=== PATIENT | female | born 1955 | race African-American/Black ===

== ENCOUNTER 2016-12-11 12:16 | Emergency (ER) | payer OTHER ==
[~2016-12-11] VITALS: Wt 56.2 kg
[~2016-12-11 12:16] MED LIST: ALLERGY RELIEF10 M2 PO; ANTIVERT/2525 M1 PO; ASPIR LOW81 MG PO; CORICIDIN COUGH1 TAB PO; K-TAB20 MEQ PO; LEVAQUIN750 M1 PO; LIPITOR40 MG PO; LISINOPRIL5 MG PO; MACROBID100 M1 PO; MECLIZINE HCL25 M2 PO; MIRAPEX PO; MIRAPEX0.125 M1 PO; Motrin,Rufen800 MG PO; NEURONTIN300 MG PO; NEURONTIN600 MG PO; NORCO 5-325 TA1 EACH PO; PREDNISONE50 MG PO; PRILOSEC40 M1 PO; PRINIVIL10 MG PO; TECFIDERA PO; TECFIDERA240 M2 PO; TRAZODONE50 MG PO; TYLENOL325 M2 PO; XALATAN 0.005%2.5 ML INTRAOC; ZANTAC 150150 MG PO; ZOFRAN ODT4 MG SL
[2016-12-11] MEDS ORDERED: PREVACID15 M1 PO (12:40)
[2016-12-11] MEDS ORDERED: ROBAXIN500 M1 PO (12:41)
[2016-12-11] MEDS ORDERED: ALBUTEROL2.5 MG/0.5 INH (12:41)
[2016-12-11] MEDS ORDERED: ASMANEX HF100 MCG/Ac INH (12:41)
== END 2016-12-11 15:07 | disposition home or self-care (01) ==
LOC: ED 12:16
DX: R13.10 Dysphagia, unspecified (principal); F17.200 Nicotine dependence, unspecified, uncomplicated; Z90.710 Acquired absence of both cervix and uterus; Z90.49 Acquired absence of other specified parts of digestive tract; Z79.899 Other long term (current) drug therapy; Z88.5 Allergy status to narcotic agent

== ENCOUNTER 2016-12-19 16:45 | Inpatient (IN) | payer OTHER ==
[~2016-12-19] VITALS: Ht 160 cm; Wt 57.2 kg
[2016-12-19 16:45] VITALS: BP 122/103
[~2016-12-19 16:45] MED LIST changes: +ALBUTEROL2.5 MG/0.5 INH; +ASMANEX HF100 MCG/Ac INH; +PREVACID15 M1 PO; +ROBAXIN500 M1 PO
[2016-12-19 17:00] VITALS: BP 128/88
[2016-12-19 17:24] LABS: BASO % 0.8 % (0.0-1.0); EOS # 0.1 10*3/uL (0.0-0.4); EOS % 1.4 % (1.0-4.0); HEMATOCRIT 33.9 % (37.0-47.0); HEMOGLOBIN 11.3 g/dl (12.0-16.0); LYMPH # 1.5 10*3/uL (1.3-4.4); LYMPH % 42.9 % (27.0-41.0); MEAN CELL VOLUME 88.1 fl (81.0-99.0); MEAN CORPUSCULAR HGB 29.4 pg (27.0-31.0); MEAN CORPUSCULAR HGB CONC 33.3 g/dl (33.0-37.0); MEAN PLATELET VOLUME 10.3 fl (9.6-12.3); MONO # 0.4 10*3/uL (0.1-1.0); MONO % 10.6 % (3.0-9.0); NEUT # 1.6 10*3/uL (2.3-7.9); NEUT % 44.3 % (47.0-73.0); PLATELET COUNT AUTOMATED 202 10*3/uL (130-400); RED BLOOD COUNT 3.85 10*6/uL (4.10-5.10); RED CELL DISTRI WIDTH 13.6 % (0-14.5); WHITE BLOOD COUNT 3.6 10*3/uL (4.8-10.8)
[2016-12-19 17:37] LABS: INTERNATIONAL NORM RATIO 0.9 (2.0-3.5)
[2016-12-19 17:40] LABS: ALBUMIN 3.8 gm/dl (3.1-4.5); ALKALINE PHOSPHATASE 70 U/L (45-117); BILIRUBIN, TOTAL 0.3 mg/dl (0.2-1.0); BUN 18 mg/dl (7-24); CARBON DIOXIDE 25 mmol/L (21-32); CHLORIDE 105 mmol/L (98-107); CPK 87 U/L (26-192); EST GLOM FILT AFRICAN AMERICAN > 60 ml/min; GLUCOSE 124 mg/dL (65-99); MAGNESIUM 2.2 mg/dL (1.5-2.1); POTASSIUM 3.5 mmol/L (3.5-5.1); SGOT/AST 17 IU/L (3-35); SGPT/ALT 21 U/L (12-78); SODIUM 142 mmol/L (136-145)
[2016-12-19 17:43] LABS: TROPONIN I < 0.015 ng/ml (<0.045)
[2016-12-19] MEDS ORDERED: LISINOPRIL/HCTZ1 TA4 PO (18:34)
[2016-12-19 18:56] VITALS: BP 108/68
[2016-12-19 19:14] VITALS: BP 109/58
[2016-12-19 20:00] VITALS: BP 110/68
[2016-12-19] MEDS ORDERED: BENADRYL ALLERG25 M5 PO (20:09)
[2016-12-19] MEDS ORDERED: PROAIR HFA8.5 GM INH (20:14)
[2016-12-19] MEDS ORDERED: ZANTAC 150150 MG PO (20:15)
[2016-12-19] MEDS ORDERED: NEURONTIN300 MG PO ×2 (20:18)
[2016-12-19] MEDS ORDERED: BOOST PO (20:19)
[2016-12-19 20:24] VITALS: BP 110/68
[2016-12-20] VITALS: BP 120/51
[2016-12-20 00:47] LABS: CKMB < 0.5 ng/ml (0.5-3.6); CPK 90 U/L (26-192); TROPONIN I < 0.015 ng/ml (<0.045)
[2016-12-20 06:36] LABS: HEMATOCRIT 34.4 % (37.0-47.0); HEMOGLOBIN 11.3 g/dl (12.0-16.0); MEAN CELL VOLUME 88.7 fl (81.0-99.0); MEAN CORPUSCULAR HGB 29.1 pg (27.0-31.0); MEAN CORPUSCULAR HGB CONC 32.8 g/dl (33.0-37.0); PLATELET COUNT AUTOMATED 209 10*3/uL (130-400); RED BLOOD COUNT 3.88 10*6/uL (4.10-5.10); RED CELL DISTRI WIDTH 13.9 % (0-14.5); WHITE BLOOD COUNT 3.5 10*3/uL (4.8-10.8)
[2016-12-20 06:40] LABS: CPK 75 U/L (26-192)
[2016-12-20 06:41] LABS: CKMB < 0.5 ng/ml (0.5-3.6); TROPONIN I < 0.015 ng/ml (<0.045)
[2016-12-20 06:44] LABS: HEMOGLOBIN A1c 5.7 % (4.8-5.6)
[2016-12-20 06:59] LABS: BUN 15 mg/dl (7-24); CARBON DIOXIDE 30 mmol/L (21-32); CHLORIDE 106 mmol/L (98-107); CHOLESTEROL 140 mg/dL (<200); EST GLOM FILT AFRICAN AMERICAN > 60 ml/min; FREE T4 1.19 ng/dl (0.76-1.46); GLUCOSE 87 mg/dL (65-99); HDL CHOLESTEROL 88 mg/dl (40-60); LDL CHOLESTEROL 44 mg/dL (9-159); PHOSPHOROUS 3.8 mg/dL (2.5-4.9); POTASSIUM 4.1 mmol/L (3.5-5.1); SODIUM 144 mmol/L (136-145); TRIGLYCERIDES 39 mg/dl (<150); VLDL CHOLESTEROL 8 mg/dL (6-40)
[2016-12-20 07:04] LABS: LYMPHOCYTE # 2.1 10*3/uL (1.3-4.4); MONOCYTE # 0.4 10*3/uL (0.1-1.0); NEUTROPHILS 29 % (47-73); TOTAL CELLS COUNTED 100 #CELLS
[2016-12-20 07:05] LABS: PLATELET SUFFICIENCY NORMAL (NORMAL)
[2016-12-20 07:46] LABS: VITAMIN D, 25-HYDROXY 17.2 ng/mL (30-100)
[2016-12-20 07:47] LABS: FOLIC ACID 9.32 ng/mL (>5.38)
[2016-12-20 08:00] VITALS: BP 104/58
[2016-12-20 12:00] VITALS: BP 119/62
[2016-12-20 12:13] LABS: CKMB 0.5 ng/ml (0.5-3.6); CPK 69 U/L (26-192)
[2016-12-20 12:15] LABS: TROPONIN I < 0.015 ng/ml (<0.045)
== END 2016-12-20 13:55 | disposition home or self-care (01) | DRG 313 ==
LOC: ED 16:45 → 4E 18:04 → EDHOLD 18:04 → 4E 18:56
PROVIDERS: Student in an Organized Health Care Education/Training Program
DX: R07.89 Other chest pain (principal); E83.41 Hypermagnesemia; I10 Essential (primary) hypertension; D72.819 Decreased white blood cell count, unspecified; D64.9 Anemia, unspecified; G35 Multiple sclerosis; E78.5 Hyperlipidemia, unspecified; K21.9 Gastro-esophageal reflux disease without esophagitis; R00.1 Bradycardia, unspecified; F17.210 Nicotine dependence, cigarettes, uncomplicated; R13.10 Dysphagia, unspecified; E55.9 Vitamin D deficiency, unspecified; J44.9 Chronic obstructive pulmonary disease, unspecified; Z86.73 Personal history of transient ischemic attack (TIA), and cerebral infarction without residual deficits; Z82.49 Family history of ischemic heart disease and other diseases of the circulatory system; Z90.49 Acquired absence of other specified parts of digestive tract; Z90.710 Acquired absence of both cervix and uterus; Z82.3 Family history of stroke; Z88.5 Allergy status to narcotic agent; Z79.82 Long term (current) use of aspirin; Z79.899 Other long term (current) drug therapy

== ENCOUNTER 2017-05-14 11:32 | Emergency (ER) | payer OTHER ==
[~2017-05-14] VITALS: Ht 160 cm; Wt 54.4 kg
[~2017-05-14 11:32] MED LIST changes: +BENADRYL ALLERG25 M5 PO; +BOOST PO; +LISINOPRIL/HCTZ1 TA4 PO; +PROAIR HFA8.5 GM INH
[2017-05-14 12:00] LABS: BILIRUBIN NEGATIVE (NEGATIVE); BLOOD NEGATIVE (NEGATIVE); CLARITY CLEAR (CLEAR); COLOR YELLOW (YELLOW); GLUCOSE NEGATIVE (NEGATIVE); KETONE 1+ (NEGATIVE); LEUKO ESTERASE NEGATIVE (NEGATIVE); NITRITE NEGATIVE (NEGATIVE); PH 5.5 (5.0-9.0); UROBILINOGEN 0.2 E.U./dl (0.2-1.0)
[2017-05-14] MEDS ORDERED: CYCLOBENZAPRINE5 M3 PO (12:53)
[2017-05-14] MEDS ORDERED: LIDEX 0.05% CRE15 GM T (12:53)
== END 2017-05-14 13:01 | disposition home or self-care (01) ==
LOC: ED 11:32
PROVIDERS: Physician Assistant
DX: L50.9 Urticaria, unspecified (principal); M54.5 Low back pain; R10.30 Lower abdominal pain, unspecified; F17.200 Nicotine dependence, unspecified, uncomplicated; Z88.6 Allergy status to analgesic agent; Z79.899 Other long term (current) drug therapy

== ENCOUNTER 2017-06-20 14:23 | Inpatient (IN) | payer OTHER ==
[~2017-06-20] VITALS: Ht 160 cm; Wt 51.9 kg
[~2017-06-20 14:23] MED LIST changes: +CYCLOBENZAPRINE5 M3 PO; +LIDEX 0.05% CRE15 GM T
[2017-06-20 14:31] VITALS: BP 135/71
[2017-06-20 14:47] LABS: BASO % 0.5 % (0.0-1.0); EOS # 0.1 10*3/uL (0.0-0.4); HEMATOCRIT 33.2 % (37.0-47.0); HEMOGLOBIN 11.1 g/dl (12.0-16.0); LYMPH # 2.7 10*3/uL (1.3-4.4); MEAN CELL VOLUME 90.2 fl (81.0-99.0); MEAN CORPUSCULAR HGB 30.2 pg (27.0-31.0); MEAN CORPUSCULAR HGB CONC 33.4 g/dl (33.0-37.0); MEAN PLATELET VOLUME 10.3 fl (9.6-12.3); MONO # 0.4 10*3/uL (0.1-1.0); MONO % 6.9 % (3.0-9.0); NEUT # 2.4 10*3/uL (2.3-7.9); NEUT % 43.2 % (47.0-73.0); PLATELET COUNT AUTOMATED 237 10*3/uL (130-400); RED BLOOD COUNT 3.68 10*6/uL (4.10-5.10); RED CELL DISTRI WIDTH 13.3 % (0-14.5); WHITE BLOOD COUNT 5.6 10*3/uL (4.8-10.8)
[2017-06-20 14:56] LABS: ACT PARTIAL THROMBO TIME 21.2 SECONDS (20.8-31.5); INTERNATIONAL NORM RATIO 0.9 (2.0-3.5)
[2017-06-20 15:02] LABS: LIPASE 183 U/L (73-393)
[2017-06-20 15:03] LABS: ALBUMIN 3.8 gm/dl (3.1-4.5); ALKALINE PHOSPHATASE 74 U/L (45-117); BUN 20 mg/dl (7-24); CHLORIDE 106 mmol/L (98-107); CREATININE 0.97 mg/dL (0.55-1.02); MAGNESIUM 1.9 mg/dL (1.5-2.1); POTASSIUM 3.9 mmol/L (3.5-5.1); SGOT/AST 22 IU/L (3-35); SGPT/ALT 25 U/L (12-78); SODIUM 139 mmol/L (136-145)
[2017-06-20 15:04] LABS: TROPONIN I < 0.015 ng/ml (<0.045)
[2017-06-20 15:09] VITALS: BP 121/70
[2017-06-20 15:35] VITALS: BP 144/69
--- NOTE | 2017-06-20 16:12 | NUR ---
BACK FROM US. PT STATES PAIN IS "ALOT LESS. DOESN'T REALLY HURT RIGHT NOW".
[2017-06-20 16:13] VITALS: BP 127/60
--- NOTE | 2017-06-20 16:20 | NUR ---
A 61, admitted to 5E, under the services of EWA Hernandez DO with a diagnosis of CHEST PAIN R/O PA, ABD PAIN. Chief complaint is CHEST PAIN. Patient arrived via ambulatory from ER. Monitor applied. Initial assessment completed. Vital signs taken and recorded. EWA HERNANDEZ DO notified of admission to the unit. Orders received. See assessment for past medical history, medications and allergies. Patient and/or family oriented to unit. [facility] visitation policy reviewed. Clothing/patient valuable form completed. DARLENE ARNOLD
[2017-06-20 16:48] VITALS: BP 136/62
--- NOTE | 2017-06-20 16:57 | NUR ---
CT PREP STARTED AT THIS TIME.
[2017-06-20] MEDS ORDERED: PROTONIX40 MG PO (17:29)
--- NOTE | 2017-06-20 17:39 | NUR ---
PT MED REC UP TO DATE PER LIST PROVIDED BY PT.
--- NOTE | 2017-06-20 17:39 | NUR ---
CT PREP COMPLETED AT THIS TIME.
--- NOTE | 2017-06-20 18:20 | NUR ---
PT TO CT AT THIS TIME.
--- NOTE | 2017-06-20 18:40 | NUR ---
PT BACK FROM CT AT THIS TIME.
--- NOTE | 2017-06-20 18:45 | NUR ---
PT RESTING UP IN BED EATING DINNER, NO COMPLAINTS AT THIS TIME. CALL LIGHT WITHIN REACH.
[2017-06-20 20:00] VITALS: BP 96/51
[2017-06-21] VITALS: BP 104/53
--- NOTE | 2017-06-21 01:16 | NUR ---
PATIENT MEDICATED WITH NORCO PER PRN ORDER FOR C/O LEG PAIN. RATED PAIN A 7-8/10 WITH 10 BEING THE WORST. SEE EMAR. REINFORCED USE OF CALL LIGHT.
[2017-06-21 06:03] LABS: BASO # 0.1 10*3/uL (0.0-0.1); EOS # 0.2 10*3/uL (0.0-0.4); HEMATOCRIT 31.4 % (37.0-47.0); HEMOGLOBIN 10.5 g/dl (12.0-16.0); LYMPH # 2.4 10*3/uL (1.3-4.4); MEAN CORPUSCULAR HGB 29.7 pg (27.0-31.0); MEAN CORPUSCULAR HGB CONC 33.4 g/dl (33.0-37.0); MEAN PLATELET VOLUME 10.4 fl (9.6-12.3); MONO # 0.4 10*3/uL (0.1-1.0); MONO % 8.1 % (3.0-9.0); NEUT % 38.7 % (47.0-73.0); PLATELET COUNT AUTOMATED 217 10*3/uL (130-400); RED BLOOD COUNT 3.53 10*6/uL (4.10-5.10); RED CELL DISTRI WIDTH 13.3 % (0-14.5)
[2017-06-21 06:47] LABS: ALBUMIN 3.6 gm/dl (3.1-4.5); ALKALINE PHOSPHATASE 66 U/L (45-117); BUN 17 mg/dl (7-24); CHLORIDE 104 mmol/L (98-107); CREATININE 0.66 mg/dL (0.55-1.02); MAGNESIUM 1.8 mg/dL (1.5-2.1); PHOSPHOROUS 3.6 mg/dL (2.5-4.9); POTASSIUM 3.6 mmol/L (3.5-5.1); SGOT/AST 18 IU/L (3-35); SGPT/ALT 27 U/L (12-78); SODIUM 139 mmol/L (136-145); TOTAL PROTEIN 6.6 gm/dL (6.4-8.2)
[2017-06-21 06:54] LABS: FREE T4 1.16 ng/dl (0.76-1.46)
[2017-06-21 08:00] VITALS: BP 116/62
[2017-06-21 08:35] LABS: VITAMIN D, 25-HYDROXY 77.7 ng/mL (30-100)
--- NOTE | 2017-06-21 09:47 | NUR ---
MEDICATED WITH ROBAXIN PER PRN ORDER FOR LEG ACHES AND RESTLESS LEGS. WILL MONITOR FOR EFFECTIVENESS.
--- NOTE | 2017-06-21 11:36 | NUR ---
PT RESTING COMOFRTABLY, ROBAXIN EFFECTIVE.
[2017-06-21 12:00] VITALS: BP 129/78
--- NOTE | 2017-06-21 13:28 | NUR ---
Discharge instructions reviewed with patient/family. Patient receptive and verbalizes understanding. Follow-up care arranged. Written instructions given to patient/family. IV site and upper shaper removed. Ptr transported to [facility] via wheelchair. DARLENE ARNOLD
== END 2017-06-21 13:28 | disposition home or self-care (01) | DRG 391 ==
LOC: ED 14:23 → EDHOLD 15:18 → 5E 15:37
PROVIDERS: Emergency Medicine; Internal Medicine; ADMIT Internal Medicine
DX: K21.9 Gastro-esophageal reflux disease without esophagitis (principal); J18.9 Pneumonia, unspecified organism; K76.0 Fatty (change of) liver, not elsewhere classified; G35 Multiple sclerosis; I10 Essential (primary) hypertension; D64.9 Anemia, unspecified; E78.5 Hyperlipidemia, unspecified; J44.9 Chronic obstructive pulmonary disease, unspecified; F17.210 Nicotine dependence, cigarettes, uncomplicated; K59.00 Constipation, unspecified; Z88.6 Allergy status to analgesic agent; Z79.899 Other long term (current) drug therapy; Z79.82 Long term (current) use of aspirin; Z86.73 Personal history of transient ischemic attack (TIA), and cerebral infarction without residual deficits; Z90.710 Acquired absence of both cervix and uterus; Z90.49 Acquired absence of other specified parts of digestive tract; Z82.3 Family history of stroke; Z82.49 Family history of ischemic heart disease and other diseases of the circulatory system; Z83.6 Family history of other diseases of the respiratory system

== ENCOUNTER → 2017-06-27 | Outpatient (CLI) | payer OTHER ==
[~2017-06-27] MED LIST changes: +PROTONIX40 MG PO
== END | disposition home or self-care (01) ==
LOC: NM 08:40
DX: R10.11 Right upper quadrant pain (principal); R10.9 Unspecified abdominal pain; I10 Essential (primary) hypertension; K21.9 Gastro-esophageal reflux disease without esophagitis

== ENCOUNTER 2017-09-30 20:08 | Emergency (ER) | payer OTHER ==
[~2017-09-30] VITALS: Ht 160 cm; Wt 52.6 kg
[2017-09-30] MEDS ORDERED: VITAMIN D50000 UNIT PO (20:23)
[2017-09-30] MEDS ORDERED: ATORVASTATIN CA80 M1 PO (20:23)
[2017-09-30] MEDS ORDERED: NYST SUSP PO (20:26)
[2017-09-30 21:03] LABS: BASO % 0.7 % (0.0-1.0); EOS # 0.1 10*3/uL (0.0-0.4); EOS % 1.2 % (1.0-4.0); HEMATOCRIT 34.3 % (37.0-47.0); HEMOGLOBIN 11.3 g/dl (12.0-16.0); LYMPH # 2.6 10*3/uL (1.3-4.4); LYMPH % 45.8 % (27.0-41.0); MEAN CELL VOLUME 91.2 fl (81.0-99.0); MEAN CORPUSCULAR HGB 30.1 pg (27.0-31.0); MEAN CORPUSCULAR HGB CONC 32.9 g/dl (33.0-37.0); MEAN PLATELET VOLUME 10.4 fl (9.6-12.3); MONO # 0.5 10*3/uL (0.1-1.0); MONO % 8.8 % (3.0-9.0); NEUT # 2.5 10*3/uL (2.3-7.9); NEUT % 43.3 % (47.0-73.0); PLATELET COUNT AUTOMATED 227 10*3/uL (130-400); RED BLOOD COUNT 3.76 10*6/uL (4.10-5.10); RED CELL DISTRI WIDTH 13.6 % (0-14.5); WHITE BLOOD COUNT 5.7 10*3/uL (4.8-10.8)
[2017-09-30 21:17] LABS: ALBUMIN 3.9 gm/dl (3.1-4.5); ALKALINE PHOSPHATASE 101 U/L (45-117); BUN 20 mg/dl (7-24); CHLORIDE 106 mmol/L (98-107); CREATININE 0.85 mg/dL (0.55-1.02); POTASSIUM 4.3 mmol/L (3.5-5.1); SGOT/AST 24 IU/L (3-35); SGPT/ALT 41 U/L (12-78); SODIUM 143 mmol/L (136-145); TOTAL PROTEIN 7.4 gm/dL (6.4-8.2)
[2017-09-30 21:19] LABS: LIPASE 216 U/L (73-393)
[2017-09-30 21:35] LABS: BILIRUBIN NEGATIVE (NEGATIVE); BLOOD NEGATIVE (NEGATIVE); CLARITY CLEAR (CLEAR); COLOR YELLOW (YELLOW); GLUCOSE NEGATIVE (NEGATIVE); KETONE NEGATIVE (NEGATIVE); LEUKO ESTERASE NEGATIVE (NEGATIVE); NITRITE NEGATIVE (NEGATIVE); UROBILINOGEN 0.2 E.U./dl (0.2-1.0)
[2017-09-30 21:49] LABS: BACTERIA 2+
== END 2017-09-30 21:56 | disposition home or self-care (01) ==
LOC: ED 20:08
PROVIDERS: Nurse Practitioner Family
DX: K59.00 Constipation, unspecified (principal); F17.200 Nicotine dependence, unspecified, uncomplicated; F12.10 Cannabis abuse, uncomplicated; I10 Essential (primary) hypertension; J44.9 Chronic obstructive pulmonary disease, unspecified; K21.9 Gastro-esophageal reflux disease without esophagitis; Z90.49 Acquired absence of other specified parts of digestive tract; Z90.710 Acquired absence of both cervix and uterus; Z98.890 Other specified postprocedural states; Z86.73 Personal history of transient ischemic attack (TIA), and cerebral infarction without residual deficits; Z79.82 Long term (current) use of aspirin; Z79.899 Other long term (current) drug therapy; Z88.5 Allergy status to narcotic agent

== ENCOUNTER → 2017-12-02 | Outpatient (CLI) | payer OTHER ==
[~2017-12-02] MED LIST changes: +ATORVASTATIN CA80 M1 PO; +NYST SUSP PO; +VITAMIN D50000 UNIT PO
[2017-12-02 10:00] LABS: BUN 24 mg/dl (7-24); CREATININE 0.93 mg/dL (0.55-1.02)
== END | disposition home or self-care (01) ==
LOC: LAB 09:30 → CT 10:00
PROVIDERS: Nurse Practitioner Family
DX: R10.11 Right upper quadrant pain (principal)

== ENCOUNTER → 2018-01-07 | Outpatient (CLI) | payer OTHER ==
--- NOTE | ~2018-01-07 | HM ---
[place], [place] HOLTER MONITOR REPORT [id number] UNIT #: [id number] ROOM: DOCTOR: JUAN A JAVIER MD BIRTHDATE: [birth year] DOS: A 24-HOUR HOLTER MONITOR This study was recorded from January 07 through 01/08/2018. The recording was analyzed and is being interpreted and dictated on 01/08/2018. INDICATIONS: Palpitations and chest pain. FINDINGS: The patient was monitored utilizing a Holter technique for 24 hours. The basic rhythm was normal sinus. Average heart rate was 66 with heart rates varying from 50 to 99 beats per minute in sinus rhythm. No ventricular arrhythmias were noted. She did not have ventricular tachycardia, prolonged pauses or PVCs. Occasional premature atrial contractions were noted. There was no SVT seen. The patient did note feeling short winded in her diary. She was in sinus rhythm at a rate of 66 at that time. She also felt a fluttering in her chest while lying down. She was in sinus rhythm at a rate of 62. IMPRESSION: Normal 24-hour Holter monitor. JUAN A JAVIER MD CM:HOLTER:HOLTER MONITOR REPORT [id number] JUAN A JAVIER MD
== END ==
LOC: CARD 09:40
DX: R00.2 Palpitations (principal)

== ENCOUNTER → 2018-01-15 | Outpatient (CLI) | payer OTHER ==
[2018-01-15 15:08] LABS: ALKALINE PHOSPHATASE 109 U/L (45-117); BUN 13 mg/dl (7-24); CHLORIDE 107 mmol/L (98-107); CREATININE 0.76 mg/dL (0.55-1.02); POTASSIUM 4.4 mmol/L (3.5-5.1); SGOT/AST 36 IU/L (3-35); SGPT/ALT 58 U/L (12-78); SODIUM 139 mmol/L (136-145); TOTAL PROTEIN 7.1 gm/dL (6.4-8.2)
== END | disposition home or self-care (01) ==
LOC: LAB 13:49
PROVIDERS: Family Medicine
DX: Z13.29 Encounter for screening for other suspected endocrine disorder (principal); I77.1 Stricture of artery

== ENCOUNTER → 2018-02-13 | Outpatient (CLI) | payer OTHER | END | disposition home or self-care (01) | LOC: CT 13:14 | DX: I70.203 Unspecified atherosclerosis of native arteries of extremities, bilateral legs (principal); N28.0 Ischemia and infarction of kidney; I77.1 Stricture of artery ==